=== PATIENT | female | born 1940 | race Caucasian/White ===

== ENCOUNTER 2024-03-21 22:38 | Observation (INO) | payer MEDICARE ==
[~2024-03-21] VITALS: Ht 165.1 cm; Wt 108.9 kg
[2024-03-21] MEDS ORDERED: ONDANSETRON HCL INJ 2MG/ML 2ML 2 MG/ML VIAL ONE (23:12)
[2024-03-21] MEDS ORDERED: SODIUM CHLORIDE FLUSH 10 ML SYR IV PRN (23:15)
[2024-03-21] MEDS: ONDANSETRON HCL INJ 2MG/ML 2ML 2 MG/ML VIAL IV STA (23:26)
[2024-03-21 23:33] LABS: BASOPHILS % 0.3 % (0.0-1.0); EOSINOPHILS # (AUTO) 0.2 (0.0-0.4); EOSINOPHILS % 1.5 % (0.0-6.0); HEMATOCRIT 40.3 % (34.2-44.1); HEMOGLOBIN 12.9 g/dL (12.0-16.0); LYMPHOCYTES # (AUTO) 2.8 (1.0-3.2); LYMPHOCYTES % 20.2 % (18.0-39.1); MEAN CORPUSCULAR HEMOGLOBIN 33.1 pg (28-32); MEAN CORPUSCULAR VOLUME 103.3 fL (81-99); MONOCYTES # (AUTO) 1.5 (0.2-0.8); MONOCYTES % 10.8 % (4.4-11.3); NEUTROPHILS # (AUTO) 9.2 (2.1-6.9); NEUTROPHILS % 66.5 % (38.7-80.0); PLATELET COUNT 227 x10e3/uL (140-360); RED CELL DISTRIBUTION WIDTH 13.8 % (11.7-14.4); WHITE BLOOD COUNT 13.79 x10e3/uL (4.8-10.8)
[2024-03-21 23:47] LABS: ALANINE AMINOTRANSFERASE 11 IU/L (0-55); ALBUMIN 2.8 g/dL (3.5-5.0); ALBUMIN/GLOBULIN RATIO 1.2 (0.8-2.0); ALKALINE PHOSPHATASE 62 IU/L (40-150); ANION GAP 14.4 mmol/L (8-16); BILIRUBIN,TOTAL 0.4 mg/dL (0.2-1.2); BLOOD UREA NITROGEN 12 mg/dL (7-26); BUN/CREATININE RATIO 23 (6-25); CARBON DIOXIDE 17 mmol/L (22-29); CHLORIDE 112 mmol/L (98-107); CREATININE, SERUM 0.53 mg/dL (0.57-1.11); EST GLOMERULAR FILTRATION RATE 93 ML/MIN (>=60); GLUCOSE 111 mg/dL (74-118); POTASSIUM 3.4 mmol/L (3.5-5.1); SODIUM 140 mmol/L (136-145); TOTAL PROTEIN 5.1 g/dL (6.5-8.1)
[2024-03-21 23:48] LABS: CALCIUM 6.9 mg/dL (8.4-10.2)
[2024-03-21 23:55] LABS: TROPONIN I < 0.001 ng/mL (0-0.300)
[2024-03-22] VITALS (11 sets, daily range): BP systolic 107–135; BP diastolic 56–76; PULSE 53–78; RESP 16–20; TEMP 97.7–99.3; O2SAT 94–97
[2024-03-22] MEDS: CALCIUM GLUC 1 G/50 ML NACL 50 ML IV ONE ×2 (00:42→01:48)
[2024-03-22 00:50] LABS: BILIRUBIN,URINE NEGATIVE (NEGATIVE); CLARITY,URINE CLEAR (CLEAR); COLOR,URINE YELLOW (YELLOW); GLUCOSE, URINE NEGATIVE (NEGATIVE); KETONES,URINE NEGATIVE (NEGATIVE); LEUKOCYTE ESTERASE ,URINE 1+ (NEGATIVE); NITRITE,URINE POSITIVE (NEGATIVE); PH,URINE 6 (5 - 7); PROTEIN,URINE DIPSTICK NEGATIVE (NEGATIVE); URINE UROBILINOGEN 0.2 mg/dL (0.2 - 1)
[2024-03-22 00:53] LABS: BACTERIA,URINE MANY /HPF; EPITHELIAL CELLS,URINE MANY /LPF; WBC,URINE (MAN) >50 /HPF (0-5)
[2024-03-22] MEDS ORDERED: SODIUM CHLORIDE FLUSH 10 ML SYR INJ PRN (01:30)
[2024-03-22] MEDS ORDERED: ONDANSETRON HCL INJ 2MG/ML 2ML 2 MG/ML VIAL IV PRN (01:30)
[2024-03-22 05:27] LABS: CORONAVIRUS COVID-19 AG NEGATIVE (NEGATIVE); INFLUENZA A AG NEGATIVE (NEGATIVE); INFLUENZA B AG NEGATIVE (NEGATIVE)
[2024-03-22] MEDS ORDERED: METOPROLOL TARTRATE INJ 1 MG/ML VIAL IV PRN (10:15)
[2024-03-22] MEDS ORDERED: SIMETHICONE 80 MG CHEW PO PRN (10:15)
[2024-03-22] MEDS ORDERED: ALBUTEROL/IPRATROPIUM 3 ML NEB NEB PRN (10:15)
[2024-03-22] MEDS ORDERED: DOCUSATE SODIUM 100 MG CAP PO PRN (10:15)
[2024-03-22] MEDS: ACETAMINOPHEN 325 MG TAB PO PRN (12:14)
[2024-03-22] MEDS: SODIUM CHLORIDE 0.45% 1,000 ML IV SCH (12:15)
[2024-03-22] MEDS ORDERED: MELATONIN3 MG PO (15:02)
[2024-03-22] MEDS ORDERED: COLESTIPOL HCL1 GM PO (15:02)
[2024-03-22] MEDS ORDERED: PRESERVISION A1 EAC4 PO (15:02)
[2024-03-22] MEDS ORDERED: NYSTATIN15 GM TOP (15:02)
[2024-03-22] MEDS ORDERED: DICYCLOMINE HCL10 MG PO (15:02)
[2024-03-22] MEDS ORDERED: ALLOPURINOL300 MG PO (15:02)
[2024-03-22] MEDS ORDERED: LASIX20 MG PO (15:02)
[2024-03-22] MEDS ORDERED: BUPROPION HCL100 MG PO (15:02)
[2024-03-22] MEDS ORDERED: ATORVASTATIN CA10 MG PO (15:02)
[2024-03-22] MEDS ORDERED: SERTRALINE HCL50 MG PO (15:02)
[2024-03-22] MEDS ORDERED: SYNTHROID125 MCG PO (15:02)
[2024-03-22] MEDS ORDERED: NEURONTIN300 MG PO (15:02)
[2024-03-22] MEDS ORDERED: ATENOLOL50 MG PO (15:02)
[2024-03-22] MEDS ORDERED: VITAMIN D325 MCG PO (15:08)
[2024-03-22] MEDS ORDERED: TRAZODONE HCL50 MG PO (15:08)
[2024-03-22] MEDS ORDERED: [UNRECOGNIZED DRUG - OTHER] PO (15:08)
[2024-03-22] MEDS: ENOXAPARIN SOD INJ 40 MG/0.4 ML SYR SC SCH (16:55)
[2024-03-22] MEDS: FAMOTIDINE 20 MG TAB PO SCH (16:55)
[2024-03-23] VITALS (8 sets, daily range): BP systolic 119–141; BP diastolic 67–77; PULSE 63–87; RESP 17–18; TEMP 97.8–98.7; O2SAT 92–96
[2024-03-23] MEDS: MELATONIN 3 MG TAB PO PRN (00:15)
[2024-03-23 08:18] LABS: BASOPHILS % 0.4 % (0.0-1.0); EOSINOPHILS # (AUTO) 0.2 (0.0-0.4); EOSINOPHILS % 2.9 % (0.0-6.0); HEMATOCRIT 35.3 % (34.2-44.1); HEMOGLOBIN 11.2 g/dL (12.0-16.0); LYMPHOCYTES # (AUTO) 2.8 (1.0-3.2); LYMPHOCYTES % 34.1 % (18.0-39.1); MEAN CORPUSCULAR HEMOGLOBIN 33.1 pg (28-32); MEAN CORPUSCULAR HGB CONC 31.7 g/dL (31-35); MEAN CORPUSCULAR VOLUME 104.4 fL (81-99); MONOCYTES # (AUTO) 1.1 (0.2-0.8); NEUTROPHILS % 48.6 % (38.7-80.0); PLATELET COUNT 184 x10e3/uL (140-360); RED BLOOD COUNT 3.38 x10e6/uL (3.6-5.1); RED CELL DISTRIBUTION WIDTH 13.9 % (11.7-14.4); WHITE BLOOD COUNT 8.23 x10e3/uL (4.8-10.8)
[2024-03-23 08:57] LABS: ALBUMIN 3.1 g/dL (3.5-5.0); BILIRUBIN,TOTAL 0.4 mg/dL (0.2-1.2); CALCIUM 9.4 mg/dL (8.4-10.2); CREATININE, SERUM 0.6 mg/dL (0.57-1.11); TOTAL PROTEIN 6.2 g/dL (6.5-8.1)
[2024-03-23] MEDS: CEFTRIAXONE 2 GM in SODIUM CHLORIDE 0.9% 100 ML IV SCH (09:33)
[2024-03-23] MEDS: SENNOSIDES 8.6 MG TAB PO SCH (09:33)
[2024-03-23] MEDS: MULTIVITAMINS/MINERALS TAB PO SCH (16:13)
[2024-03-24] VITALS (7 sets, daily range): BP systolic 137–150; BP diastolic 75–80; PULSE 68–85; RESP 17–20; TEMP 97.6–98.4; O2SAT 94–100
[2024-03-24 07:41] LABS: ANION GAP 15.7 mmol/L (8-16); CALCIUM 9.3 mg/dL (8.4-10.2); CREATININE, SERUM 0.62 mg/dL (0.57-1.11); POTASSIUM 3.7 mmol/L (3.5-5.1)
[2024-03-24] MEDS ORDERED: CEPHALEXIN500 MG PO (09:15)
[2024-03-24] MEDS ORDERED: ONDANSETRON HCL 4 MG ORAL DISINTEGRATING TAB PO PRN (12:45)
== END 2024-03-24 14:18 | disposition home or self-care (01) ==
LOC: ER 22:45 → ERHOLD 03-22 01:31 → MED/SURG3 03-22 03:02
PROVIDERS: ADMIT Internal Medicine; ATTEND Internal Medicine
DX: N39.0 Urinary tract infection, site not specified (principal); E87.20 Acidosis, unspecified; R33.9 Retention of urine, unspecified; E83.51 Hypocalcemia; R53.1 Weakness; R53.81 Other malaise; I10 Essential (primary) hypertension; R01.1 Cardiac murmur, unspecified; I45.2 Bifascicular block; E78.5 Hyperlipidemia, unspecified; E03.9 Hypothyroidism, unspecified; E11.9 Type 2 diabetes mellitus without complications; M19.91 Primary osteoarthritis, unspecified site; K57.30 Diverticulosis of large intestine without perforation or abscess without bleeding; E66.01 Morbid (severe) obesity due to excess calories; Z68.39 Body mass index [BMI] 39.0-39.9, adult; M10.9 Gout, unspecified; Z11.52 Encounter for screening for COVID-19; Z85.51 Personal history of malignant neoplasm of bladder; Z85.72 Personal history of non-Hodgkin lymphomas; Z85.6 Personal history of leukemia; Z79.899 Other long term (current) drug therapy
CPT/HCPCS: 36415; 51700; 71045; 74176; 80048; 80053; 81001; 83880; 84484; 85025; 87086; 87186; 93005; 94760; 94799; 99285; G0378; J0696; J1650; J2405; J7050

== ENCOUNTER 2024-05-01 21:21 | Emergency (ER) | payer MEDICARE ==
[~2024-05-01] VITALS: Ht 165.1 cm; Wt 108.9 kg
[~2024-05-01 21:21] MED LIST: ALLOPURINOL300 MG PO; ATENOLOL50 MG PO; ATORVASTATIN CA10 MG PO; BUPROPION HCL100 MG PO; CEPHALEXIN500 MG PO; COLESTIPOL HCL1 GM PO; DICYCLOMINE HCL10 MG PO; LASIX20 MG PO; MELATONIN3 MG PO; NEURONTIN300 MG PO; NYSTATIN15 GM TOP; PRESERVISION A1 EAC4 PO; SERTRALINE HCL50 MG PO; SYNTHROID125 MCG PO; TRAZODONE HCL50 MG PO; VITAMIN D325 MCG PO; [UNRECOGNIZED DRUG - OTHER] PO
[2024-05-01 21:30] VITALS: PULSE 80; RESP 20; TEMP 98.6
[2024-05-01] MEDS: ONDANSETRON HCL INJ 2MG/ML 2ML 2 MG/ML VIAL IV STA (21:49)
[2024-05-01] MEDS: SODIUM CHLORIDE 0.9% 1000ML 1,000 ML IV ONE (21:50)
[2024-05-01 21:59] LABS: BASOPHILS % 0.2 % (0.0-1.0); EOSINOPHILS # (AUTO) 0.4 (0.0-0.4); EOSINOPHILS % 3.7 % (0.0-6.0); HEMATOCRIT 38.4 % (34.2-44.1); HEMOGLOBIN 13.1 g/dL (12.0-16.0); LYMPHOCYTES # (AUTO) 1.3 (1.0-3.2); LYMPHOCYTES % 13.8 % (18.0-39.1); MEAN CORPUSCULAR HEMOGLOBIN 33.2 pg (28-32); MEAN CORPUSCULAR HGB CONC 34.1 g/dL (31-35); MEAN CORPUSCULAR VOLUME 97.2 fL (81-99); MONOCYTES # (AUTO) 0.9 (0.2-0.8); MONOCYTES % 9.9 % (4.4-11.3); NEUTROPHILS # (AUTO) 6.7 (2.1-6.9); NEUTROPHILS % 71.7 % (38.7-80.0); PLATELET COUNT 200 x10e3/uL (140-360); RED BLOOD COUNT 3.95 x10e6/uL (3.6-5.1); RED CELL DISTRIBUTION WIDTH 13.9 % (11.7-14.4)
[2024-05-01 22:00] LABS: CORONAVIRUS COVID-19 AG NEGATIVE (NEGATIVE); INFLUENZA A AG NEGATIVE (NEGATIVE); INFLUENZA B AG NEGATIVE (NEGATIVE)
[2024-05-01 22:09] LABS: ALBUMIN 3.9 g/dL (3.5-5.0); ALBUMIN/GLOBULIN RATIO 1.1 (0.8-2.0); ANION GAP 17.9 mmol/L (8-16); BILIRUBIN,TOTAL 0.7 mg/dL (0.2-1.2); CALCIUM 9.7 mg/dL (8.4-10.2); CREATININE, SERUM 0.7 mg/dL (0.57-1.11); POTASSIUM 3.9 mmol/L (3.5-5.1); TOTAL PROTEIN 7.6 g/dL (6.5-8.1)
[2024-05-01] MEDS ORDERED: IOPAMIDOL 370 MG/ML 100 ML INFUS..BTL INJ ONE (22:27)
[2024-05-01 23:35] LABS: CLARITY,URINE CLEAR (CLEAR); COLOR,URINE YELLOW (YELLOW); LEUKOCYTE ESTERASE ,URINE NEGATIVE (NEGATIVE); PH,URINE 7 (5 - 7)
[2024-05-01 23:36] VITALS: O2SAT 95
[2024-05-01 23:36] LABS: BILIRUBIN,URINE NEGATIVE (NEGATIVE); GLUCOSE, URINE NEGATIVE (NEGATIVE); KETONES,URINE NEGATIVE (NEGATIVE); NITRITE,URINE POSITIVE (NEGATIVE); PROTEIN,URINE DIPSTICK 1+ (NEGATIVE); URINE UROBILINOGEN 0.2 mg/dL (0.2 - 1)
[2024-05-02 00:23] LABS: BACTERIA,URINE MANY /HPF; EPITHELIAL CELLS,URINE FEW /LPF; RBC,URINE 0-5 /HPF (0-5)
[2024-05-02] MEDS ORDERED: CEFDINIR300 MG PO (01:38)
[2024-05-02] MEDS ORDERED: ONDANSETRON ODT4 MG SL (01:38)
[2024-05-02 03:16] VITALS: BP 139/96; PULSE 79; RESP 19
== END 2024-05-02 03:20 | disposition home or self-care (01) ==
LOC: ER 21:30
DX: R11.2 Nausea with vomiting, unspecified (principal); N39.0 Urinary tract infection, site not specified; R10.33 Periumbilical pain; R05.9 Cough, unspecified; R51.9 Headache, unspecified; E11.65 Type 2 diabetes mellitus with hyperglycemia; E03.9 Hypothyroidism, unspecified; I10 Essential (primary) hypertension; M10.9 Gout, unspecified; R01.1 Cardiac murmur, unspecified; Z11.52 Encounter for screening for COVID-19; Z85.51 Personal history of malignant neoplasm of bladder; Z85.6 Personal history of leukemia; Z85.72 Personal history of non-Hodgkin lymphomas; Z96.653 Presence of artificial knee joint, bilateral
CPT/HCPCS: 36415; 71045; 74177; 80053; 81001; 84484; 85025; 87428; 99284; J2405; J2470; J7030; Q9967; 93005; J0696

== ENCOUNTER 2024-09-11 20:29 | Inpatient (IN) | payer MEDICARE ==
[~2024-09-11] VITALS: Ht 165.1 cm; Wt 108.9 kg
[~2024-09-11 20:29] MED LIST changes: +CEFDINIR300 MG PO; +ONDANSETRON ODT4 MG SL
[2024-09-11 22:12] LABS: BASOPHILS % 0.2 % (0.0-1.0); EOSINOPHILS # (AUTO) 0.2 (0.0-0.4); HEMATOCRIT 39.8 % (34.2-44.1); HEMOGLOBIN 13.2 g/dL (12.0-16.0); LYMPHOCYTES % 21.1 % (18.0-39.1); MEAN CORPUSCULAR HGB CONC 33.2 g/dL (31-35); MEAN CORPUSCULAR VOLUME 96.6 fL (81-99); MONOCYTES # (AUTO) 1.5 (0.2-0.8); MONOCYTES % 10.6 % (4.4-11.3); NEUTROPHILS # (AUTO) 9.6 (2.1-6.9); NEUTROPHILS % 66.3 % (38.7-80.0); PLATELET COUNT 268 x10e3/uL (140-360); RED BLOOD COUNT 4.12 x10e6/uL (3.6-5.1); RED CELL DISTRIBUTION WIDTH 14.6 % (11.7-14.4); WHITE BLOOD COUNT 14.42 x10e3/uL (4.8-10.8)
[2024-09-11 22:31] LABS: BILIRUBIN,URINE NEGATIVE (NEGATIVE); CLARITY,URINE SL CLOUDY (CLEAR); COLOR,URINE YELLOW (YELLOW); GLUCOSE, URINE NEGATIVE (NEGATIVE); KETONES,URINE NEGATIVE (NEGATIVE); LEUKOCYTE ESTERASE ,URINE MODERATE (NEGATIVE); NITRITE,URINE POSITIVE (NEGATIVE); PH,URINE 7 (5 - 7); PROTEIN,URINE DIPSTICK TRACE (NEGATIVE); URINE UROBILINOGEN 0.2 mg/dL (0.2 - 1)
[2024-09-11 22:35] LABS: ALBUMIN 3.4 g/dL (3.5-5.0); ALBUMIN/GLOBULIN RATIO 0.8 (0.8-2.0); ANION GAP 17.4 mmol/L (8-16); BILIRUBIN,TOTAL 0.9 mg/dL (0.2-1.2); CREATININE, SERUM 0.73 mg/dL (0.57-1.11); POTASSIUM 4.4 mmol/L (3.5-5.1); TOTAL PROTEIN 7.7 g/dL (6.5-8.1)
[2024-09-11 22:42] LABS: BACTERIA,URINE MANY /HPF; EPITHELIAL CELLS,URINE MANY /LPF; TRANSITIONAL EPI CELLS,URINE MODERATE
[2024-09-11] MEDS: ONDANSETRON HCL INJ 2MG/ML 2ML 2 MG/ML VIAL IV STA (22:52)
[2024-09-11 23:58] VITALS: PULSE 89; RESP 21; TEMP 99.4
[2024-09-12] VITALS (12 sets, daily range): BP systolic 116–135; BP diastolic 72–90; PULSE 72–88; RESP 16–20; TEMP 97.7–98.7; O2SAT 93–99
[2024-09-12 05:22] LABS: BASOPHILS % 0.3 % (0.0-1.0); EOSINOPHILS # (AUTO) 0.1 (0.0-0.4); EOSINOPHILS % 1.1 % (0.0-6.0); HEMATOCRIT 35.4 % (34.2-44.1); HEMOGLOBIN 11.6 g/dL (12.0-16.0); LYMPHOCYTES # (AUTO) 2.6 (1.0-3.2); LYMPHOCYTES % 20.1 % (18.0-39.1); MEAN CORPUSCULAR HGB CONC 32.8 g/dL (31-35); MEAN CORPUSCULAR VOLUME 97.8 fL (81-99); MONOCYTES # (AUTO) 1.4 (0.2-0.8); MONOCYTES % 11.2 % (4.4-11.3); NEUTROPHILS # (AUTO) 8.6 (2.1-6.9); NEUTROPHILS % 66.3 % (38.7-80.0); PLATELET COUNT 274 x10e3/uL (140-360); RED BLOOD COUNT 3.62 x10e6/uL (3.6-5.1); RED CELL DISTRIBUTION WIDTH 14.6 % (11.7-14.4); WHITE BLOOD COUNT 12.91 x10e3/uL (4.8-10.8)
[2024-09-12 05:41] LABS: ALBUMIN 3.1 g/dL (3.5-5.0); ALBUMIN/GLOBULIN RATIO 0.8 (0.8-2.0); ANION GAP 13.9 mmol/L (8-16); BILIRUBIN,TOTAL 0.7 mg/dL (0.2-1.2); CALCIUM 9.4 mg/dL (8.4-10.2); CREATININE, SERUM 0.64 mg/dL (0.57-1.11); POTASSIUM 3.9 mmol/L (3.5-5.1); TOTAL PROTEIN 6.9 g/dL (6.5-8.1)
[2024-09-12] MEDS ORDERED: ALBUTEROL/IPRATROPIUM 3 ML NEB NEB PRN (14:15)
[2024-09-12] MEDS ORDERED: DOCUSATE SODIUM 100 MG CAP PO PRN (14:15)
[2024-09-12] MEDS ORDERED: DIPHENHYDRAMINE HCL 25 MG CAP PO PRN (14:15)
[2024-09-12] MEDS ORDERED: POTASSIUM CHLORIDE 20 MEQ TAB CR PO PRN (14:15)
[2024-09-12] MEDS ORDERED: HYDRALAZINE HCL 20 MG/ML VIAL IV PRN (14:15)
[2024-09-12] MEDS ORDERED: DEXTROSE 50% SYRINGE 50 ML IV PRN (14:15)
[2024-09-12] MEDS ORDERED: SIMETHICONE 80 MG CHEW PO PRN (14:15)
[2024-09-12] MEDS ORDERED: BENZONATATE 100 MG CAP PO PRN (14:15)
[2024-09-12] MEDS: SODIUM CHLORIDE 0.9% 1000ML 1,000 ML IV SCH (18:07)
[2024-09-12] MEDS: ENOXAPARIN SOD INJ 40 MG/0.4 ML SYR SC SCH (18:08)
[2024-09-12] MEDS: DICYCLOMINE HCL 10 MG CAP PO SCH (18:08)
[2024-09-12] MEDS ORDERED: MELATONIN 5 MG TABLET PO PRN (21:00)
[2024-09-12] MEDS: ONDANSETRON HCL INJ 2MG/ML 2ML 2 MG/ML VIAL IV PRN (23:21)
[2024-09-12] MEDS: ATORVASTATIN 10 MG TAB PO SCH (23:21)
[2024-09-12] MEDS: TRAZODONE HCL 50 MG TAB PO SCH (23:21)
[2024-09-12] MEDS: ACETAMINOPHEN 325 MG TAB PO PRN (23:22)
[2024-09-13 04:00] VITALS: BP 129/71; PULSE 77; RESP 18; TEMP 98.6; O2SAT 96
[2024-09-13] MEDS: LEVOTHYROXINE SODIUM 125 MCG TAB PO SCH (05:43)
[2024-09-13 07:59] VITALS: BP 119/58; PULSE 73; RESP 17; TEMP 97.6; O2SAT 96
[2024-09-13 08:06] LABS: BASOPHILS % 0.3 % (0.0-1.0); EOSINOPHILS # (AUTO) 0.3 (0.0-0.4); EOSINOPHILS % 2.7 % (0.0-6.0); HEMATOCRIT 34.3 % (34.2-44.1); HEMOGLOBIN 11.1 g/dL (12.0-16.0); LYMPHOCYTES # (AUTO) 2.5 (1.0-3.2); LYMPHOCYTES % 22.3 % (18.0-39.1); MEAN CORPUSCULAR HGB CONC 32.4 g/dL (31-35); MEAN CORPUSCULAR VOLUME 98.8 fL (81-99); MONOCYTES # (AUTO) 1.3 (0.2-0.8); MONOCYTES % 12.1 % (4.4-11.3); NEUTROPHILS # (AUTO) 6.8 (2.1-6.9); NEUTROPHILS % 61.5 % (38.7-80.0); PLATELET COUNT 238 x10e3/uL (140-360); RED BLOOD COUNT 3.47 x10e6/uL (3.6-5.1); RED CELL DISTRIBUTION WIDTH 14.5 % (11.7-14.4); WHITE BLOOD COUNT 11.02 x10e3/uL (4.8-10.8)
[2024-09-13 08:29] LABS: ANION GAP 14.8 mmol/L (8-16); CALCIUM 8.9 mg/dL (8.4-10.2); CREATININE, SERUM 0.59 mg/dL (0.57-1.11); MAGNESIUM 1.8 MG/DL (1.3-2.1); POTASSIUM 3.8 mmol/L (3.5-5.1)
[2024-09-13] MEDS: PANTOPRAZOLE SOD 40 MG TABEC PO SCH (09:17)
[2024-09-13] MEDS: ALLOPURINOL 300 MG TAB PO SCH (09:18)
[2024-09-13] MEDS: SERTRALINE HCL 50 MG TAB PO SCH (09:19)
[2024-09-13 10:53] VITALS: BP 119/58; PULSE 73; RESP 17; TEMP 97.6; O2SAT 96
[2024-09-13 11:34] VITALS: BP 117/70; PULSE 73; RESP 18; TEMP 98.8; O2SAT 97
[2024-09-13] MEDS ORDERED: IOPAMIDOL 370 MG/ML 100 ML INFUS..BTL INJ ONE (14:27)
[2024-09-13] MEDS: MEGACE 400 MG / 10 ML CUP PO SCH (15:08)
[2024-09-13] MEDS: BUPROPION HCL 100 MG TAB PO SCH (15:09)
[2024-09-13 15:19] VITALS: BP 144/71; PULSE 70; RESP 19; TEMP 98.3; O2SAT 97
[2024-09-13 20:00] VITALS: BP 130/69; PULSE 72; RESP 20; TEMP 98.2; O2SAT 100
[2024-09-13] MEDS: LIDOCAINE 4% PATCH TP PRN (20:00)
[2024-09-14] VITALS (10 sets, daily range): BP systolic 109–137; BP diastolic 55–87; PULSE 67–87; RESP 16–20; TEMP 97.5–99; O2SAT 95–100
[2024-09-14] MEDS: SODIUM CHLORIDE 0.9% 250ML 250 ML ONE (00:34)
[2024-09-14] MEDS: NYSTATIN 15 GM POWDER UD BTL TOP SCH (10:10)
[2024-09-15] VITALS (11 sets, daily range): BP systolic 111–130; BP diastolic 55–99; PULSE 71–99; RESP 16–20; TEMP 97.6–99.1; O2SAT 95–100
[2024-09-15 05:23] LABS: BASOPHILS % 0.3 % (0.0-1.0); EOSINOPHILS # (AUTO) 0.4 (0.0-0.4); HEMATOCRIT 33.1 % (34.2-44.1); LYMPHOCYTES # (AUTO) 2.7 (1.0-3.2); LYMPHOCYTES % 29.1 % (18.0-39.1); MEAN CORPUSCULAR HEMOGLOBIN 31.9 pg (28-32); MEAN CORPUSCULAR HGB CONC 33.2 g/dL (31-35); MEAN CORPUSCULAR VOLUME 95.9 fL (81-99); MONOCYTES # (AUTO) 0.9 (0.2-0.8); NEUTROPHILS # (AUTO) 5.1 (2.1-6.9); NEUTROPHILS % 55.4 % (38.7-80.0); PLATELET COUNT 281 x10e3/uL (140-360); RED BLOOD COUNT 3.45 x10e6/uL (3.6-5.1); RED CELL DISTRIBUTION WIDTH 14.5 % (11.7-14.4); WHITE BLOOD COUNT 9.14 x10e3/uL (4.8-10.8)
[2024-09-15 05:46] LABS: ANION GAP 14.7 mmol/L (8-16); CALCIUM 9.1 mg/dL (8.4-10.2); CREATININE, SERUM 0.59 mg/dL (0.57-1.11); POTASSIUM 3.7 mmol/L (3.5-5.1)
[2024-09-16] VITALS (7 sets, daily range): BP systolic 118–142; BP diastolic 63–94; PULSE 46–90; RESP 18–20; TEMP 97.6–98.6; O2SAT 96–100
[2024-09-16] MEDS ORDERED: CEFDINIR300 MG PO (14:07)
== END 2024-09-16 19:09 | DRG 193 ==
LOC: ER 21:36 → ERHOLD 23:30 → MED/SURG 09-12 01:59
PROVIDERS: ADMIT Internal Medicine; ATTEND Internal Medicine
DX: J18.9 Pneumonia, unspecified organism (principal); G93.41 Metabolic encephalopathy; N39.0 Urinary tract infection, site not specified; F03.94 Unspecified dementia, unspecified severity, with anxiety; R11.2 Nausea with vomiting, unspecified; I10 Essential (primary) hypertension; E78.5 Hyperlipidemia, unspecified; E11.9 Type 2 diabetes mellitus without complications; F41.8 Other specified anxiety disorders; E03.9 Hypothyroidism, unspecified; R63.0 Anorexia; Z68.39 Body mass index [BMI] 39.0-39.9, adult; Z99.3 Dependence on wheelchair; Z85.51 Personal history of malignant neoplasm of bladder; Z85.6 Personal history of leukemia; Z85.72 Personal history of non-Hodgkin lymphomas; Z79.899 Other long term (current) drug therapy
CPT/HCPCS: 36415; 71045; 71260; 74018; 74177; 80048; 80053; 81001; 83735; 83880; 84443; 85025; 87040; 87086; 87186; 94799; 99284; J0696; J1650; J2405; J2470; J7030; J7050; Q9967

== ENCOUNTER 2024-11-11 19:43 | Emergency (ER) | payer MEDICARE ==
[~2024-11-11] VITALS: Ht 165.1 cm; Wt 108.9 kg
[2024-11-11 21:12] LABS: BASOPHILS % 0.2 % (0.0-1.0); EOSINOPHILS % 0.7 % (0.0-6.0); LYMPHOCYTES % 16.1 % (18.0-39.1); MONOCYTES % 10.3 % (4.4-11.3); NEUTROPHILS % 72.0 % (38.7-80.0); RED CELL DISTRIBUTION WIDTH 14.6 % (11.7-14.4)
[2024-11-11] MEDS: SODIUM CHLORIDE 0.9% 1000ML 2,100 ML IV ONE (21:18)
[2024-11-11 21:56] LABS: INR 1.16
[2024-11-11 22:06] LABS: EST GLOMERULAR FILTRATION RATE 88.0 ML/MIN (>=60)
[2024-11-11 22:54] LABS: LEUKOCYTE ESTERASE ,URINE LARGE (NEGATIVE); PROTEIN,URINE DIPSTICK 2+ (NEGATIVE); URINE UROBILINOGEN 0.2 mg/dL (0.2 - 1)
[2024-11-11 23:04] LABS: EPITHELIAL CELLS,URINE MODERATE /LPF; WBC,URINE (MAN) >50 /HPF (0-5)
[2024-11-12] MEDS ORDERED: CEFDINIR300 MG PO (00:21)
[2024-11-12 00:43] VITALS: PULSE 96; RESP 24; TEMP 98.4
[2024-11-12 01:26] VITALS: BP 122/35; PULSE 87; RESP 18; TEMP 98; O2SAT 96
== END 2024-11-12 01:30 | disposition home or self-care (01) ==
LOC: ER 19:47
DX: R30.0 Dysuria (principal); N39.0 Urinary tract infection, site not specified; I10 Essential (primary) hypertension; E11.65 Type 2 diabetes mellitus with hyperglycemia; E03.9 Hypothyroidism, unspecified; M10.9 Gout, unspecified; R01.1 Cardiac murmur, unspecified; F41.9 Anxiety disorder, unspecified; F32.A Depression, unspecified; Z85.51 Personal history of malignant neoplasm of bladder; Z96.653 Presence of artificial knee joint, bilateral
CPT/HCPCS: 36415; 71045; 80053; 81001; 83605; 85025; 85610; 85730; 87040; 87086; 87186; 93005; 99284; J0696